=== PATIENT | female | born 1980 | race Caucasian/White ===

== ENCOUNTER 2016-08-04 20:08 | Emergency (ER) | payer OTHER ==
[~2016-08-04] VITALS: Ht 154.9 cm; Wt 59.0 kg
[2016-08-04 20:27] VITALS: BP_SYST 110
--- NOTE | 2016-08-04 20:36 | NUR ---
Pt placed to ER bed 03, report given to LEILA Conte.
--- NOTE | 2016-08-04 20:40 | NUR ---
Patient to ER C/O dizziness all day and "twice i almost fell down" no injury or trauma. AAOx4, unlabored breathing, no signs of acute distress.
--- NOTE | 2016-08-04 20:50 | NUR ---
ER MD Hough at bedside for evaluation
[2016-08-04] MEDS ORDERED: NACL 0.9% 1,000 ML IV SCH (20:53)
--- NOTE | 2016-08-04 20:55 | NUR ---
# 20 gauge angiocath placed to right ac. Use of asceptic technique. Opsite placed over site. Blood return noted. Blood for lab drawn from site. Flushed with 10 cc of normal saline. No evidence of infiltration noted. Patient tolerated well.
[2016-08-04] MEDS ORDERED: MECLIZINE HCL 25 MG TABLET (ANITVERT) PO ONE (21:00)
[2016-08-04 21:02] LABS: BILIRUBIN,URINE NEGATIVE (NEGATIVE); BLOOD, URINE NEGATIVE (NEGATIVE); CLARITY/URINE HAZY (CLEAR); COLOR,URINE YELLOW (YELLOW); GLUCOSE,URINE NEGATIVE (NEGATIVE); KETONES,URINE NEGATIVE (NEGATIVE); LEUKOCYTE ESTERASE ,URINE TRACE (NEGATIVE); NITRITE, URINE POSITIVE (NEGATIVE); PROTEIN URINE NEGATIVE (NEGATIVE); UROBILINOGEN,URINE 0.2 (0.2-1.0)
--- NOTE | 2016-08-04 21:10 | NUR ---
Patient refused CT scan and EKG. ER MD Gianluca vang.
--- NOTE | 2016-08-04 21:14 | NUR ---
Radiology at bedside with portable for Xray
[2016-08-04 21:20] LABS: BASOPHILS % (AUTO) 0.7 % (0.0-2.0); EOSINOPHILS # (AUTO) 0.3 K/uL (0.0-0.4); EOSINOPHILS % (AUTO) 4.1 % (0.0-4.0); HEMATOCRIT 32.4 % (36-48); HEMOGLOBIN 10.5 g/dL (12.0-16.0); LYMPHOCYTES # (AUTO) 2.7 K/uL (1.0-5.5); LYMPHOCYTES % (AUTO) 43.2 % (20.5-51.5); MEAN CORPUSCULAR HEMOGLOBIN 26 pg (27-31); MEAN CORPUSCULAR HGB CONC 33 % (32-36); MEAN CORPUSCULAR VOLUME 80 fL (79.0-98.0); MONOCYTES # (AUTO) 0.5 K/uL (0.0-1.0); MONOCYTES % (AUTO) 7.3 % (1.7-9.3); NEUTROPHILS # (AUTO) 2.9 K/uL (1.8-7.7); NEUTROPHILS % (AUTO) 44.7 % (40.0-70.0); PLATELET COUNT (AUTO) 224 K/uL (130-430); RED BLOOD CELL COUNT(AUTO) 4.03 MIL/uL (4.2-6.2); RED CELL DISTRIBUTION WIDTH 13.5 % (9.0-15.0); WHITE BLOOD COUNT (AUTO) 6.4 K/uL (4.8-10.8)
[2016-08-04 21:24] LABS: BACTERIA,URINE MANY /HPF (None Seen); MUCUS,URINE None Seen /LPF (None Seen); RBC,URINE NONE SEEN /HPF (0-3); WBC,URINE 20-50 /HPF (0-3)
[2016-08-04] MEDS ORDERED: LORazepam 2 MG/ML VIAL (FOR ER USE) IVP ONE (21:30)
[2016-08-04 21:32] LABS: CALCIUM 8.5 mg/dL (8.4-11.0); CREATININE 0.59 mg/dL (0.55-1.30); POTASSIUM 3.8 mmol/L (3.5-5.1)
[2016-08-04 21:37] LABS: ALBUMIN 3.6 g/dL (3.4-4.8); TOTAL BILIRUBIN 0.3 mg/dL (0.0-1.0); TOTAL PROTEIN, SERUM 7.3 g/dL (6.4-8.3)
--- NOTE | 2016-08-04 22:09 | NUR ---
Patient calm on gurney VS WNL, friend at bedside.
[2016-08-04] MEDS ORDERED: cefTRIAXone 1 GM in D5W 50 ML IV ONE (22:15)
[2016-08-04] MEDS ORDERED: cefTRIAXone 1 GM VIAL ONE (22:26)
[2016-08-04 23:04] VITALS: BP_SYST 116
--- NOTE | 2016-08-04 23:04 | NUR ---
Patient given written and verbal discharge instructions and verbalizes understanding. ER MD Hough discussed with patient the results and treatment provided. Patient in stable condition. ID arm band removed. IV catheter removed intact and dressing applied, no active bleeding. Rx of keflex given. Patient educated on pain management and to follow up with PMD. Pain Scale 0/10. Opportunity for questions provided and answered.
== END 2016-08-04 23:04 | disposition home or self-care (01) ==
LOC: SED 20:09
DX: E16.2 Hypoglycemia, unspecified (principal); N39.0 Urinary tract infection, site not specified; Z85.3 Personal history of malignant neoplasm of breast; Z90.13 Acquired absence of bilateral breasts and nipples; Z90.710 Acquired absence of both cervix and uterus
CPT/HCPCS: 36415; 71010; 80053; 81000; 81025; 83735; 84484; 85025; 87086; 96361; 96365; 96375; 99285; J0696; J2060; J7030; J7060; J8597